=== PATIENT | female | born 1990 | race African-American/Black ===

== ENCOUNTER 2017-04-06 17:48 | Emergency (ER) | payer OTHER ==
[2017-04-06 18:43] VITALS: BP 147/70
[2017-04-06] MEDS ORDERED: NAPR500T8 PO (19:26)
[2017-04-06] MEDS ORDERED: CYCL10TA2 PO (19:26)
--- NOTE | 2017-04-06 19:26 | PHYS DOC ---
Past Medical History Past Medical History: No Pertinent History Past Surgical History: No Surgical History Alcohol Use: None Drug Use: None Adult General Chief Complaint Chief Complaint: UPPER EXTREMITY PAIN HPI HPI Patient is a 27 year old female who presents with mild right shoulder pain specifically on the AC joint. Patient states the pain began yesterday. Patient states she was in the shower, she slide and fell, she states she stretched the right upper extremity to hold on the wall pulling it as she fell. Patient denies any loss of consciousness. Patient states the pain is worse on movement of the right upper extremity. Review of Systems Review of Systems Constitutional: Denies fever or chills [] Eyes: Denies change in visual acuity, redness, or eye pain [] Musculoskeletal: Right shoulder pain Integument: Denies rash or skin lesions [] Neurologic: Denies headache, focal weakness or sensory changes [] Endocrine: Denies polyuria or polydipsia [] Allergies Allergies Allergies Coded Allergies Type Severity Reaction Last Updated Verified No Known Drug Allergies 03/14/14 No Physical Exam Physical Exam Constitutional: Well developed, well nourished, no acute distress, non-toxic appearance. [] HENT: Normocephalic, atraumatic, bilateral external ears normal, oropharynx moist, no oral exudates, nose normal. [] Skin: Warm, dry, no erythema, no rash. [] Back: No tenderness, no CVA tenderness. [] Extremities: Right shoulder with no obvious deformity. No obvious edema or ecchymosis. Tenderness on palpation of the right before meals joint. Full passive and active range of motion to the right shoulder, full abduction and adduction of the right shoulder. Adequate plantar flexion and dorsiflexion of the right forearm. +2 right radial pulse. Adequate radial medial and ulnar sensation to the right forearm. Cap refill less than 2 seconds the right upper extremity. Neurologic: Alert and oriented X 3, normal motor function, normal sensory function, no focal deficits noted. [] Psychologic: Affect normal, judgement normal, mood normal. [] Current Patient Data Vital Signs Vital Signs Date Time Temp Pulse Resp B/P (MAP) Pulse Ox O2 Delivery O2 Flow Rate FiO2 04/06/17 18:43 98.5 63 18 100 Room Air 98.5 EKG EKG [] Radiology/Procedures Radiology/Procedures Right shoulder x-rays interpreted by Dr. Leiva and Dr. Phillips possible AC joint separation[] Course & Med Decision Making Course & Med Decision Making Pertinent Labs and Imaging studies reviewed. (See chart for details) Patient is in the ED with the right shoulder pain after falling yesterday. Right shoulder x-rays interpreted by Dr. Leiva and Dr. Phillips possible AC joint separation. Patient was placed in a sling in the ED by the ED RN, neurovascular exam done by me post splint application is normal, cap refill less than 2 seconds. Ice elevation encouraged. Follow-up with Ortho tomorrow. Dragon Disclaimer Dragon Disclaimer This electronic medical record was generated, in whole or in part, using a voice recognition dictation system. Departure Departure Impression: Primary Impression: AC separation Additional Impression: Fall from standing Disposition: 01 HOME, SELF-CARE Condition: STABLE Referrals: NO PCP (PCP) MONIKA LILLY MD Call the orthopedic doctor's office tomorrow and get a follow-up appointment Patient Instructions: Shoulder Pain, [id number] Additional Instructions: You were seen for right shoulder pain. Your x-ray shows you could have AC joint separation . Ice and elevate the extremity. Use the sling as tolerated, do not leave your right upper extremity in the sling more than 1 hour per time. Ensure you remove the right upper extremity from the sling every hour take it through full range of motion, and dangle it down to prevent frozen shoulder from sling use. Take the prescribed medicines as needed. Do not drive on the cyclobenzaprine. Do not operate machinery is on the cyclobenzaprine. Scripts Cyclobenzaprine Hcl (CYCLOBENZAPRINE HCL) 10 Mg Tablet 1 TAB PO TID, #30 TAB Prov: DORENE RUEDA APRN 04/06/17 Naproxen (NAPROXEN) 500 Mg Tablet. 1 TAB PO BID, #60 TAB 1 Refill Prov: DORENE RUEDA APRN 04/06/17 Problem Qualifiers Primary Impression: AC separation Encounter type: initial encounter Laterality: right Qualified Codes: S43.101A - Unspecified dislocation of right acromioclavicular joint, initial encounter Additional Impression: Fall from standing Encounter type: initial encounter Qualified Codes: W19.XXXA - Unspecified fall, initial encounter DORENE RUEDA APRN Apr 06, 2017 19:26
--- NOTE | 2017-04-07 08:04 | RAD ---
Indication fall. Pain. Internally and externally rotated views of the right shoulder were obtained as well as 2 Y views. No bony abnormality is seen
== END 2017-04-06 19:39 | disposition home or self-care (01) ==
LOC: ER 17:48
DX: S43.101A Unspecified dislocation of right acromioclavicular joint, initial encounter (principal); W18.39XA Other fall on same level, initial encounter; Y93.E1 Activity, personal bathing and showering; Y99.8 Other external cause status; Y92.89 Other specified places as the place of occurrence of the external cause
CPT/HCPCS: 73030; 99284